=== PATIENT | male | born 1990 | race African-American/Black ===

== ENCOUNTER 2016-12-15 13:06 | Inpatient (IN) | payer MEDICARE, OTHER ==
--- NOTE | ~2016-12-15 | HP ---
History And Physical [facility] [address] [place]. [address] NAME: ROWENA BRIGHT : 88 STATUS : ADM Renee PAT#: [id number] AGE: 26 ADM/REG DATE : 12/15/16 MR#: [id number] REPORT SERV DATE: 12/15/16 DICTATED BY: ANDRÉS MEJIA DATE: 12/15/16 REPORT STATUS : Draft TRANSCRIBED BY: MODL DATE: 12/15/16 DATE OF ADMISSION: 12/15/2016 CHIEF COMPLAINT: Pain all over his body, especially in both his legs. HISTORY OF PRESENT ILLNESS: This is a 26-year-old male who presents to the emergency room at [facility] with the pain all over his body, but more so in both his lower extremities. History is obtained from the patient and reviewing data available on the [employer] system. According to Mr. Bright, who has a history of sickle cell anemia with numerous admissions for painful crisis, he was in his usual state of health until about a week or so ago when he started feeling poorly. He is on chronic pain medications under Pain Management and has been quite trouble-free, but he does have these painful crises. He knew he was headed in the wrong way. He was taking his medications and when he started using more of his breakthrough short acting pain medicine he knew he had to go in. This has been more so in the last four days or so when he started having severe pain in both his knee and his entire leg mostly. He tried heating pads and other relief measures without any success. In the emergency room, he appeared to have painful crisis and Hospitalist Service is asked to admit him for further evaluation and treatment. His chest x-ray was unremarkable today. At the time of my evaluation, he denied any chest pain or palpitations and he had no orthopnea. He did not have any cough, hemoptysis, night sweats, or weight loss. No history of recent falls or loss of consciousness. He denied any fevers, chills, nausea, vomiting, or diarrhea. No history of hematemesis, hematochezia, or hematuria. No other history of recent travel or exposures other than those mentioned above. PAST MEDICAL HISTORY: Significant for history of sickle cell disease with numerous presentations with painful crisis. He also had acute chest syndrome in the past. He had chronic pain with Pain Management supervising him. SOCIAL HISTORY: He does not smoke, does not drink. He uses marijuana occasionally. FAMILY HISTORY: Noncontributory. MEDICATIONS: At home were reviewed in the chart today and reordered by me. REVIEW OF SYSTEMS: As in history of present illness. All other systems were reviewed in detail and are quite unremarkable. PHYSICAL EXAMINATION: GENERAL: This is a pleasant 26-year-old in some discomfort due to pain in his lower extremities. He is otherwise alert, awake, and oriented to time, place, and person. HEENT: His pupils are equal, reacting to light and accommodating. External ocular muscles History And Physical [address] [address] NAME: ROWENA BRIGHT : 88 STATUS : ADM Renee PAT#: [id number] AGE: 26 ADM/REG DATE : 12/15/16 MR#: [id number] REPORT SERV DATE: 12/15/16 DICTATED BY: ANDRÉS MEJIA DATE: 12/15/16 REPORT STATUS : Draft TRANSCRIBED BY: NELIA DATE: 12/15/16 are intact. Membranes are moist and pink. Sclerae are nonicteric. NECK: Supple with no jugular venous distention, lymphadenopathy, or thyromegaly. LUNGS: Auscultation of his lungs reveal fair to moderate air entry bilaterally without any expiratory wheezes. There are no rales. HEART: Auscultation of his heart reveal normal rate and rhythm without any murmurs, rubs, or gallops. ABDOMEN: Soft, nontender. Bowel sounds are present. EXTREMITIES: Show no cyanosis, clubbing, or edema. NEUROLOGIC: Grossly intact. No focal sensory or motor deficits. Higher functions appear intact. He is able to move all four extremities. VITAL SIGNS: His vital signs today show a temperature of 98.2, pulse 76, respirations 16 a minute, blood pressure is 118/56, oxygen saturations are 89% breathing 2 L of oxygen via nasal cannula. LABORATORY DATA: Reviewed on the [employer] system showed a sodium of 143, potassium 3.9, chloride 109, CO2 of 31, BUN was 6 with a creatinine of 0.46. GFR was 178. Glucose was 91. His troponin was 0.02 and CBC revealed a white blood cell count of 15,400, hemoglobin was 8.1, hematocrit 22.7, and platelet count was 459,000. His H and H are at his baseline. Films of the chest x-ray was reviewed by me on the PACS today and interpreted by me. Per my interpretation, there is normal bony architecture with no lobar consolidations or pleural effusion seen. EKG was not performed in the emergency room today. IMPRESSION: 1. Painful crisis. 2. Sickle cell anemia. 3. History of acute chest syndrome. PLAN: We will admit Mr. Bright to the Hospitalist Service with defensive monitoring for a 24-hour observation. We will start him on IV Dilaudid for pain control. Continue his pain medications that he is on at home. We will follow CBC and chemistry in the morning along with electrolytes and replete as needed. He does not have acute chest syndrome at this visit, but we will keep an eye on him. We will also place him on an unfractionated heparin for DVT prophylaxis while he is here today. He will be placed on his home medications including hydroxyurea. I have discussed the above plans with the patient and his questions were answered and he is agreeable to the above recommendations. Hospitalist Service will be following him during his stay here. /NELIA History And Physical [address] [address] NAME: ROWENA BRIGHT : 88 STATUS : ADM Renee PAT#: [id number] AGE: 26 ADM/REG DATE : 12/15/16 MR#: [id number] REPORT SERV DATE: 12/15/16 DICTATED BY: ANDRÉS MEJIA DATE: 12/15/16 REPORT STATUS : Draft TRANSCRIBED BY: NELIA DATE: 12/15/16 Andrés Mejia M.D. / [id number] CC: Mo Gusman M.D.
--- NOTE | ~2016-12-15 | DS ---
Discharge Summary [facility] [address] [place]. [address] NAME: ROWENA BRIGHT : 88 STATUS : DIS IN PAT#: [id number] AGE: 26 ADM/REG DATE : 12/16/16 MR#: [id number] REPORT SERV DATE: 12/22/16 DICTATED BY: REJI SMITH DATE: 12/21/16 REPORT STATUS : Draft TRANSCRIBED BY: MODL DATE: 12/21/16 ADMISSION DATE: 12/16/2016 DISCHARGE DATE: 12/21/2016 DISCHARGE DIAGNOSES: 1. Acute sickle cell crisis. 2. Transaminitis, now resolved. 3. History of acute chest syndrome in the past. 4. Chronic pain issues. CONSULTANTS DURING THIS HOSPITALIZATION: Dr. Mahesh Arndt of Palliative Care. INVASIVE PROCEDURES DONE DURING THIS HOSPITALIZATION: None. BRIEF HISTORY OF PRESENT ILLNESS: The patient is a 26-year-old male, presented with pain all over and in sickle cell crisis. So, he was admitted. For detailed history and physical exam, please see note dictated by Dr. Andrés Roldan on 12/15/2016. HOSPITAL COURSE: After being admitted to the hospital, this patient was given IV fluids, IV pain control, as well as oxygen therapy. Over the last five days, this patient's pain was somewhat uncontrolled. We did ask Dr. Arndt to see the patient and he adjusted his pain medications. Today, he is off his [employer]. He is on oral pain medications. He is tolerating a diet. He says his pain is still there, but better controlled. He remained stable otherwise and is being discharged in stable condition. DISCHARGE DISPOSITION: Home. DISCHARGE ACTIVITY: As tolerated. DISCHARGE DIET: As tolerated. DISCHARGE MEDICATIONS: Opana 10 mg one p.o. b.i.d., #60, with no refills; oxycodone 15 mg, one to two tablets q.i.d., #150, with no refills; hydrocodone 10/325 one tablet t.i.d. p.r.n. for pain, #90, with no refills; folic acid 1 mg once daily; Hydrea 500 mg twice daily. DISCHARGE FOLLOWUP: With Dr. Mahesh Arndt in one to two weeks. With Hematology/Oncology as previously scheduled. More than 30 minutes spent planning this patient's discharge, reconciling medications, discussing hospital care and followup with the patient, and documenting this discharge. DICTATED BY: Reji Smith M.D. Discharge Summary [address] [address] NAME: ROWENA BRIGHT : 88 STATUS : DIS IN PAT#: [id number] AGE: 26 ADM/REG DATE : 12/16/16 MR#: [id number] REPORT SERV DATE: 12/22/16 DICTATED BY: REJI SMITH DATE: 12/21/16 REPORT STATUS : Draft TRANSCRIBED BY: NELIA DATE: 12/21/16 SV/NELIA Reji Smith M.D. / [id number] CC: Mo Huizar M.D.
[~2016-12-15 13:06] MED LIST: *UNABLE1; ACET500CAP PO; ADVIL PO; AUG875 PO; BEN25 PO; CHERATUSSIN PO; DIL2TAB PO; DROXIA300 MG PO; DSS PO; FERROUS SULF325 M1 PO; FOLATE PO; FOLIC ACID; FOLIC PO; HYDREA PO; HYDROXUREA; HYDROXUREA PO; LORTAB; LORTAB10 PO; MAXIDONE PO; MULTIPLE VIT PO; MULTIVITAMI1 PO; NORCO1 TAB PO; OXYCOD PO; OXYCON10 PO; OXYCON20 PO; OXYCON40 PO; OXYCONTIN PO; OXYCONTIN30 MG PO; OXYCONTIN60 MG PO; PERCOCET; PERCOCET1 TA4 PO; RELA5 PO; ROXICODONE15 MG PO
[2016-12-15] MEDS ORDERED: OPANA ER10 MG PO (20:47)
[2016-12-15] MEDS ORDERED: FOLIC PO (20:47)
[2016-12-15] MEDS ORDERED: ROXICODONE15 MG PO (20:47)
[2016-12-15] MEDS ORDERED: HYDREA PO (20:47)
[2016-12-15 20:55] LABS: BASOPHILS 0.6 %; BASOPHILS ABSOLUTE 0.09 10/3/uL (0.0-0.16); EOSINOPHILS 1.2 %; EOSINOPHILS ABSOLUTE 0.19 10/3/uL (0.0-0.53); ER CBC TAT 0 Hrs 11 Mins; HEMATOCRIT 22.7 % (40.0-51.0); HEMOGLOBIN 8.1 g/dL (13.6-17.8); IMMATURE GRANULOCYTES 0.3 %; IMMATURE GRANULOCYTES ABSOLUTE 0.05 10/3/uL (0.0-0.11); LYMPHOCYTES 33.6 %; LYMPHOCYTES ABSOLUTE 5.18 10/3/uL (0.67-4.30); MEAN CORPUS HGB CONC 35.7 g/dL (32.0-36.0); MONOCYTES 9.3 %; MONOCYTES ABSOLUTE 1.44 10/3/uL (0.21-1.20); NEUTROPHILS ABSOLUTE 8.46 10/3/uL (2.02-8.40); NUCLEATED RED BLOOD CELLS 3.2 /100WBC (0-0); PLATELET COUNT 459 10/3/uL (150-400); RED CELL COUNT 2.61 10/6/uL (4.7-6.1); WHITE BLOOD CELLS 15.4 10/3/uL (4.5-10.5)
[2016-12-15 20:57] LABS: RBC DISTRIBUTION WIDTH 30.1 % (12.0-16.0)
[2016-12-15 20:58] LABS: MANUAL DIFF NO %
[2016-12-15 21:01] LABS: INTERNATIONAL NORMAL RATI 1.3 UNITS (-); PARTIAL THROMBO TIME 32.6 SEC (22.5-37.2); PROTIME (NOT ORD) 15.7 SEC (12.0-14.5)
[2016-12-15 21:05] LABS: ALBUMIN 4.5 G/DL (3.5-5.0); ALKALINE PHOSPHATASE 104 U/L (45-117); BUN (BLOOD UREA NITROGEN) 6 MG/DL (6-23); CALCIUM, SERUM 8.7 MG/DL (8.5-10.4); CHEST PAIN PROFILE TAT 0 Hrs 21 Mins; CHLORIDE, SERUM 109 MMOL/L (96-112); CO2 (CARBON DIOXIDE) 31 MMOL/L (24-34); CREATININE 0.46 MG/DL (0.70-1.30); DIRECT BILIRUBIN 0.7 MG/DL (0.0-0.4); GFR AFRICAN AMERICAN 178 ML/MIN (>=60); GFR NON AFRICAN AMERICAN 154 ML/MIN (>=60); GLUCOSE, SERUM 91 MG/DL (60-99); INDIRECT BILIRUBIN(NOT ORDER) 8.2 MG/DL (0.1-0.9); POTASSIUM, SERUM 3.9 MMOL/L (3.5-5.3); SGOT(AST) 46 U/L (5-40); SGPT(ALT) 35 U/L (5-65); SODIUM, SERUM 143 MMOL/L (135-148); TOTAL BILIRUBIN 8.9 MG/DL (0-1.2); TOTAL PROTEIN 7.6 G/DL (6.0-8.5); TROPONIN I <0.02 NG/ML (<0.05)
[2016-12-15 21:20] LABS: BAND NEUTROPHILS 1 %; BASOPHILS 2 %; BASOPHILS ABSOLUTE (CALC) 0.31 10/3/uL (0.0-0.16); ER DIFF TAT 0 Hrs 36 Mins; LYMPHOCYTES 32 %; LYMPHOCYTES ABSOLUTE (CALC) 4.93 10/3/uL (0.67-4.30); MONOCYTES 5 %; MONOCYTES ABSOLUTE (CALC) 0.77 10/3/uL (0.21-1.20); NEUTROPHILS ABSOLUTE (CALC) 9.39 10/3/uL (2.02-8.40); SEGMENTED NEUTROPHIL (0) 60 %; TOTAL NUCLEATED CELLS 100
[2016-12-15 21:21] LABS: ANISOCYTOSIS 4+ (>50/OIF) (0-5/OIF); POIKILOCYTOSIS 4+ (>50/OIF) (0-5/OIF); SICKLE CELLS(NOT ORD) MANY (>20/OIF)
[2016-12-15 21:22] LABS: PLATELET ESTIMATE SLT INC (ADEQUATE); POLYCHROMASIA 2+ (5-10/OIF) (0-1/OIF); STOMATOCYTES 1+ (3-10/OIF) (0-2/OIF)
[2016-12-15 21:23] LABS: ELLIPTOCYTES 1+ (3-10/OIF) (0-2/OIF)
[2016-12-15 21:52] LABS: RETICULOCYTE COUNT 69.3 % (0.5-2.9)
[2016-12-16 07:35] LABS: BUN (BLOOD UREA NITROGEN) 4 MG/DL (6-23); CALCIUM, SERUM 8.7 MG/DL (8.5-10.4); CHLORIDE, SERUM 112 MMOL/L (96-112); CREATININE 0.38 MG/DL (0.70-1.30); GFR AFRICAN AMERICAN 193 ML/MIN (>=60); GFR NON AFRICAN AMERICAN 166 ML/MIN (>=60); GLUCOSE, SERUM 93 MG/DL (60-99); PHOSPHORUS, SERUM 4.4 MG/DL (2.5-4.5); POTASSIUM, SERUM 4.5 MMOL/L (3.5-5.3); SODIUM, SERUM 145 MMOL/L (135-148)
[2016-12-16 07:36] LABS: CO2 (CARBON DIOXIDE) 25 MMOL/L (24-34)
[2016-12-16 09:04] LABS: BASOPHILS 0.7 %; BASOPHILS ABSOLUTE 0.08 10/3/uL (0.0-0.16); EOSINOPHILS 1.4 %; EOSINOPHILS ABSOLUTE 0.15 10/3/uL (0.0-0.53); HEMOGLOBIN 7.4 g/dL (13.6-17.8); IMMATURE GRANULOCYTES 0.3 %; IMMATURE GRANULOCYTES ABSOLUTE 0.03 10/3/uL (0.0-0.11); LYMPHOCYTES 44.6 %; LYMPHOCYTES ABSOLUTE 4.93 10/3/uL (0.67-4.30); MEAN CORPUS HGB CONC 35.4 g/dL (32.0-36.0); MEAN CORPUSCULAR HEMOGLOB 30.5 pg (26.0-34.0); MEAN PLATELET VOLUME 9.1 fL (9.2-13.0); MONOCYTES 11.2 %; MONOCYTES ABSOLUTE 1.24 10/3/uL (0.21-1.20); NEUTROPHILS 41.8 %; NEUTROPHILS ABSOLUTE 4.62 10/3/uL (2.02-8.40); NUCLEATED RED BLOOD CELLS 3.5 /100WBC (0-0); PLATELET COUNT 393 10/3/uL (150-400); RBC DISTRIBUTION WIDTH 27.4 % (12.0-16.0); RED CELL COUNT 2.43 10/6/uL (4.7-6.1); WHITE BLOOD CELLS 11.1 10/3/uL (4.5-10.5)
[2016-12-16 09:13] LABS: HEMATOCRIT 20.9 % (40.0-51.0); MANUAL DIFF NO %
[2016-12-16 09:58] LABS: PLATELET ESTIMATE ADQ (ADEQUATE)
[2016-12-16 09:59] LABS: POLYCHROMASIA 2+ (5-10/OIF) (0-1/OIF); SICKLE CELLS(NOT ORD) MANY (>20/OIF); TARGET CELLS OCC (1-2/OIF) (0-1/OIF)
[2016-12-17 13:46] LABS: ALLENS TEST Pos; BE (BASE EXCESS) 1.6 MEQ/L (0 +/- 2.5); CARBOXYHEMOGLOBIN 3.8 % (0-3); DEVICE NRB; HCO3 (ACTUAL BICARBONATE) 26.2 MEQ/L (23-27); HEMOBLOGIN CONTENT 7.8 G/DL (14-18); INSTRUMENT SERIAL # 8083; METHEMOGLOBIN 0.7 % (0-3); O2 CONTENT 10.7 VOL% (18-24); PCO2 (CO2 TENSION) 41 MMHG (35-45); PO2 (O2 TENSION) 163 MMHG (79-93); SAMPLE Arterial; pH 7.42 (7.37-7.43)
[2016-12-18 06:59] LABS: ALBUMIN 3.9 G/DL (3.5-5.0); BUN (BLOOD UREA NITROGEN) 4 MG/DL (6-23); CALCIUM, SERUM 8.2 MG/DL (8.5-10.4); CHLORIDE, SERUM 110 MMOL/L (96-112); CO2 (CARBON DIOXIDE) 27 MMOL/L (24-34); CREATININE 0.39 MG/DL (0.70-1.30); DIRECT BILIRUBIN 0.6 MG/DL (0.0-0.4); GFR AFRICAN AMERICAN 191 ML/MIN (>=60); GFR NON AFRICAN AMERICAN 164 ML/MIN (>=60); GLUCOSE, SERUM 93 MG/DL (60-99); PHOSPHORUS, SERUM 3.6 MG/DL (2.5-4.5); SGOT(AST) 37 U/L (5-40); SGPT(ALT) 28 U/L (5-65); SODIUM, SERUM 144 MMOL/L (135-148); TOTAL PROTEIN 6.6 G/DL (6.0-8.5)
[2016-12-18 07:00] LABS: ALKALINE PHOSPHATASE 85 U/L (45-117); INDIRECT BILIRUBIN(NOT ORDER) 9.4 MG/DL (0.1-0.9)
[2016-12-18 07:03] LABS: BASOPHILS 0.5 %; BASOPHILS ABSOLUTE 0.06 10/3/uL (0.0-0.16); EOSINOPHILS 1.8 %; EOSINOPHILS ABSOLUTE 0.22 10/3/uL (0.0-0.53); IMMATURE GRANULOCYTES 0.3 %; IMMATURE GRANULOCYTES ABSOLUTE 0.03 10/3/uL (0.0-0.11); LYMPHOCYTES 34.3 %; LYMPHOCYTES ABSOLUTE 4.11 10/3/uL (0.67-4.30); MEAN CORPUSCULAR HEMOGLOB 30.1 pg (26.0-34.0); MEAN PLATELET VOLUME 9.1 fL (9.2-13.0); MONOCYTES 7.2 %; MONOCYTES ABSOLUTE 0.86 10/3/uL (0.21-1.20); NEUTROPHILS 55.9 %; NEUTROPHILS ABSOLUTE 6.72 10/3/uL (2.02-8.40); NUCLEATED RED BLOOD CELLS 1.6 /100WBC (0-0); PLATELET COUNT 359 10/3/uL (150-400); RBC DISTRIBUTION WIDTH 22.3 % (12.0-16.0); RED CELL COUNT 2.26 10/6/uL (4.7-6.1)
[2016-12-18 07:14] LABS: HEMOGLOBIN 6.8 g/dL (13.6-17.8); MEAN CORPUS HGB CONC 37.4 g/dL (32.0-36.0); MEAN CORPUSCULAR VOLUME 80.5 fL (80-100)
[2016-12-18 07:15] LABS: MANUAL DIFF NO %
[2016-12-18 07:40] LABS: EOSINOPHILS 2 %; EOSINOPHILS ABSOLUTE (CALC) 0.24 10/3/uL (0.0-0.53); LYMPHOCYTES 39 %; LYMPHOCYTES ABSOLUTE (CALC) 4.68 10/3/uL (0.67-4.30); NEUTROPHILS ABSOLUTE (CALC) 7.08 10/3/uL (2.02-8.40); SEGMENTED NEUTROPHIL (0) 59 %; TOTAL NUCLEATED CELLS 100
[2016-12-18 07:41] LABS: PLATELET ESTIMATE ADQ (ADEQUATE)
[2016-12-18 07:42] LABS: TARGET CELLS FEW (3-10/OIF) (0-1/OIF)
[2016-12-18 07:43] LABS: POLYCHROMASIA 1+ (2-5/OIF) (0-1/OIF)
[2016-12-19 07:42] LABS: BASOPHILS 0.3 %; BASOPHILS ABSOLUTE 0.04 10/3/uL (0.0-0.16); EOSINOPHILS 3.2 %; EOSINOPHILS ABSOLUTE 0.37 10/3/uL (0.0-0.53); HEMATOCRIT 26.2 % (40.0-51.0); HEMOGLOBIN 9.5 g/dL (13.6-17.8); IMMATURE GRANULOCYTES 0.1 %; IMMATURE GRANULOCYTES ABSOLUTE 0.01 10/3/uL (0.0-0.11); LYMPHOCYTES 20.5 %; LYMPHOCYTES ABSOLUTE 2.39 10/3/uL (0.67-4.30); MANUAL DIFF NO %; MEAN CORPUS HGB CONC 36.3 g/dL (32.0-36.0); MEAN CORPUSCULAR HEMOGLOB 29.9 pg (26.0-34.0); MEAN CORPUSCULAR VOLUME 82.4 fL (80-100); MONOCYTES 10.2 %; MONOCYTES ABSOLUTE 1.19 10/3/uL (0.21-1.20); NEUTROPHILS 65.7 %; NEUTROPHILS ABSOLUTE 7.67 10/3/uL (2.02-8.40); NUCLEATED RED BLOOD CELLS 0.5 /100WBC (0-0); PLATELET COUNT 392 10/3/uL (150-400); RBC DISTRIBUTION WIDTH 19.1 % (12.0-16.0); RED CELL COUNT 3.18 10/6/uL (4.7-6.1); WHITE BLOOD CELLS 11.7 10/3/uL (4.5-10.5)
[2016-12-19 07:58] LABS: ALBUMIN 4.2 G/DL (3.5-5.0); BUN (BLOOD UREA NITROGEN) 6 MG/DL (6-23); CALCIUM, SERUM 8.7 MG/DL (8.5-10.4); CHLORIDE, SERUM 107 MMOL/L (96-112); CO2 (CARBON DIOXIDE) 31 MMOL/L (24-34); CREATININE 0.34 MG/DL (0.70-1.30); GFR AFRICAN AMERICAN 202 ML/MIN (>=60); GFR NON AFRICAN AMERICAN 174 ML/MIN (>=60); GLUCOSE, SERUM 86 MG/DL (60-99); PHOSPHORUS, SERUM 3.7 MG/DL (2.5-4.5); POTASSIUM, SERUM 3.8 MMOL/L (3.5-5.3); SODIUM, SERUM 142 MMOL/L (135-148)
[2016-12-20 06:56] LABS: BASOPHILS 0.4 %; BASOPHILS ABSOLUTE 0.05 10/3/uL (0.0-0.16); EOSINOPHILS 3.8 %; EOSINOPHILS ABSOLUTE 0.44 10/3/uL (0.0-0.53); HEMOGLOBIN 8.9 g/dL (13.6-17.8); IMMATURE GRANULOCYTES 0.3 %; IMMATURE GRANULOCYTES ABSOLUTE 0.03 10/3/uL (0.0-0.11); LYMPHOCYTES 30.4 %; LYMPHOCYTES ABSOLUTE 3.48 10/3/uL (0.67-4.30); MEAN CORPUS HGB CONC 37.1 g/dL (32.0-36.0); MEAN CORPUSCULAR HEMOGLOB 30.2 pg (26.0-34.0); MEAN CORPUSCULAR VOLUME 81.4 fL (80-100); MONOCYTES 10.4 %; MONOCYTES ABSOLUTE 1.19 10/3/uL (0.21-1.20); NEUTROPHILS 54.7 %; NEUTROPHILS ABSOLUTE 6.24 10/3/uL (2.02-8.40); NUCLEATED RED BLOOD CELLS 0.3 /100WBC (0-0); PLATELET COUNT 359 10/3/uL (150-400); RED CELL COUNT 2.95 10/6/uL (4.7-6.1); WHITE BLOOD CELLS 11.4 10/3/uL (4.5-10.5)
[2016-12-20 07:20] LABS: A/G RATIO 1.6 (0.7-1.9); ALKALINE PHOSPHATASE 90 U/L (45-117); BUN (BLOOD UREA NITROGEN) 8 MG/DL (6-23); CHLORIDE, SERUM 109 MMOL/L (96-112); CO2 (CARBON DIOXIDE) 27 MMOL/L (24-34); CREATININE 0.44 MG/DL (0.70-1.30); GFR AFRICAN AMERICAN 181 ML/MIN (>=60); GFR NON AFRICAN AMERICAN 157 ML/MIN (>=60); GLOBULIN 2.5 G/DL (2.5-4.1); GLUCOSE, SERUM 111 MG/DL (60-99); POTASSIUM, SERUM 4.5 MMOL/L (3.5-5.3); SGOT(AST) 58 U/L (5-40); SGPT(ALT) 28 U/L (5-65); SODIUM, SERUM 146 MMOL/L (135-148); TOTAL PROTEIN 6.5 G/DL (6.0-8.5)
[2016-12-20 07:29] LABS: MANUAL DIFF NO %
[2016-12-20 07:58] LABS: PLATELET ESTIMATE ADQ (ADEQUATE)
[2016-12-20 07:59] LABS: STOMATOCYTES 1+ (3-10/OIF) (0-2/OIF); TARGET CELLS FEW (3-10/OIF) (0-1/OIF)
[2016-12-20 08:00] LABS: MACROCYTES 1+ (5-10/OIF) (0-5/OIF); POLYCHROMASIA 1+ (2-5/OIF) (0-1/OIF)
[2016-12-21 07:50] LABS: HEMOGLOBIN 7.3 g/dL (13.6-17.8)
[2016-12-21] MEDS ORDERED: XODOL 10-300 T1 EACH PO (10:21)
== END 2016-12-21 17:00 | disposition home or self-care (01) | DRG 812 ==
LOC: ER 13:06 → 4SO 22:41
PROVIDERS: Emergency Medicine; Internal Medicine; Internal Medicine Pulmonary Disease
PROC: 30233N1 Transfusion of Nonautologous Red Blood Cells into Peripheral Vein, Percutaneous Approach (ICD-10-PCS; principal; 2016-12-18)
DX: D57.00 Hb-SS disease with crisis, unspecified (principal); R17 Unspecified jaundice; G89.29 Other chronic pain; Z79.891 Long term (current) use of opiate analgesic; F12.90 Cannabis use, unspecified, uncomplicated; R74.0 Nonspecific elevation of levels of transaminase and lactic acid dehydrogenase [LDH]; K59.00 Constipation, unspecified; L29.9 Pruritus, unspecified; R09.02 Hypoxemia
CPT/HCPCS: 36415; 36600; 71010; 71020; 80048; 80053; 80069; 80076; 81001; 82805; 83615; 83735; 84100; 84484; 85014; 85018; 85025; 85045; 85610; 85730; 86850; 86900; 86901; 86902; 86920; 86922; 87040; 93005; 94640; 99285; A9270-GY; J0895; J1170; J1200; J1885; J1940; J2405; J2550; P9016